=== PATIENT | male | born 1935 | race Caucasian/White ===

== ENCOUNTER → 2018-09-22 | Outpatient (CLI) | payer OTHER | END | disposition home or self-care (01) | LOC: SHCH 13:41 | PROVIDERS: ATTEND Internal Medicine Cardiovascular Disease | DX: I65.23 Occlusion and stenosis of bilateral carotid arteries (principal) | CPT/HCPCS: 93880 ==

== ENCOUNTER → 2018-09-23 | Outpatient (CLI) | payer OTHER | END | disposition home or self-care (01) | LOC: SHCH 09-22 14:29 | PROVIDERS: ATTEND Internal Medicine Cardiovascular Disease | DX: I51.7 Cardiomegaly (principal); I49.3 Ventricular premature depolarization; I49.5 Sick sinus syndrome | CPT/HCPCS: 93306 ==

== ENCOUNTER 2019-06-27 17:07 | Inpatient (IN) | payer OTHER ==
[~2019-06-27] VITALS: Ht 177.8 cm; Wt 68.9 kg
[2019-06-27] MEDS ORDERED: SODIUM CHLORIDE 0.9% 1000ML 2,000 ML IV ONE (17:28)
[2019-06-27 17:36] LABS: BASOPHILS % (AUTO) 0.6 % (0.0-5.0); LYMPHOCYTES % (AUTO) 10.4 % (21.0-51.0); MEAN CORPUSCULAR HEMOGLOBIN 29.3 pg (27.0-33.0); MEAN CORPUSCULAR HGB CONC 31.3 g/dL (32.0-36.0); MEAN CORPUSCULAR VOLUME 93.8 fL (79-99); MONOCYTES % (AUTO) 7.7 % (3.0-13.0); NEUTROPHILS % (AUTO) 77.9 % (40.0-77.0); PLATELET COUNT (AUTO) 173 K/uL (130-400); RED BLOOD CELL COUNT(AUTO) 3.41 MIL/uL (4.50-6.20); RED CELL DISTRIBUTION WIDTH 13.1 % (11.0-15.5); WHITE BLOOD COUNT (AUTO) 10.6 K/uL (4.8-10.8)
[2019-06-27 17:58] LABS: CARBON DIOXIDE 20 mmol/L (21-32); CHLORIDE 105 mmol/L (101-111); CREATININE 1.9 mg/dL (0.5-1.5); GLOMERULAR FILTR. RATE CALC 36 mL/min (>60); GLUCOSE,RANDOM 112 mg/dL (70-105); SODIUM SERUM 138 mmol/L (136-145); UREA NITROGEN, BLOOD 31 mg/dL (7-18)
[2019-06-27 18:01] LABS: INR 1.36 (0.85-1.15); PARTIAL THROMBOPLASTIN TIME 25.2 SEC (26.3-35.5); PROTHROMBIN TIME 14.5 SEC (9.6-11.6)
[2019-06-27] MEDS ORDERED: ZOSYN 3.375GM+NS 50ML 50 ML IV ONE (18:05)
[2019-06-27 18:09] LABS: ALANINE AMINOTRANSFERASE 8 U/L (12-78); ALBUMIN 2.9 g/dL (3.5-5.0); ASPARTATE AMINOTRANSFERASE 19 U/L (10-37); BILIRUBIN,TOTAL 0.2 mg/dL (0.2-1.0); CREATINE KINASE, TOTAL 108 U/L (21-232); MYOGLOBIN 278 ng/mL (10-92); TOTAL PROTEIN, SERUM 6.6 g/dL (6.0-8.3); TROPONIN I < 0.04 ng/mL (0.00-0.06)
[2019-06-27] MEDS ORDERED: SODIUM CHLORIDE 0.9% 1000ML 1,000 ML IV ONE ×2 (19:54→22:20)
[2019-06-27] MEDS: FAMOTIDINE 20MG TAB 20 MG TAB PO SCH (21:00)
[2019-06-27] MEDS ORDERED: LACTULOSE 20 GM/30 ML UDCUP PO PRN (21:15)
[2019-06-27] MEDS: CEFTRIAXONE SODIUM 1 GM IVP SCH (21:15)
[2019-06-27] MEDS ORDERED: NITROGLYCERIN 0.4 MG SL TAB SL PRN (21:15)
[2019-06-27] MEDS ORDERED: ONDANSETRON HCL 4 MG/2 ML VIAL IV PRN (21:15)
[2019-06-27] MEDS: AZITHROMYCIN 500MG+NS 250ML 250 ML IV SCH (21:15)
[2019-06-27] MEDS: SODIUM CHLORIDE 0.9% 1000ML 1,000 ML IV SCH (21:15)
[2019-06-27] MEDS ORDERED: ATORVASTATIN CALCIUM 20 MG TABLET ONE (22:20)
[2019-06-27] MEDS ORDERED: CEFTRIAXONE SODIUM 1 GM ONE (22:20)
[2019-06-27 23:48] LABS: THYROID STIMULATING HORMONE 1.29 uIU/mL (0.36-3.74)
[2019-06-28] MEDS ORDERED: AZITHROMYCIN 500MG+NS 250ML 250 ML IV ONE (00:03)
[2019-06-28 00:22] LABS: APPEARANCE,URINE Clear (CLEAR); BILIRUBIN,URINE Negative (NEGATIVE); COLOR,URINE Yellow (YELLOW); GLUCOSE, URINE (UA) Negative (NEGATIVE); KETONES,URINE Negative (NEGATIVE); LEUKOCYTE ESTERASE ,URINE Negative (NEGATIVE); NITRATE,URINE Negative (NEGATIVE); OCCULT BLOOD,URINE Small (NEGATIVE); PROTEIN,URINE Negative (NEGATIVE); UROBILINOGEN,URINE 0.2 mg/dL (0.2-1.0)
[2019-06-28 00:32] LABS: BACTERIA,URINE None Seen /HPF (None Seen); WBC,URINE 0-1 /HPF (0-1)
[2019-06-28 00:33] LABS: SQUAMOUS EPITHELIAL CELL,UR Rare /HPF (0-2)
[2019-06-28 00:40] VITALS: BP 122/58
[2019-06-28 00:44] LABS: CREATINE KINASE, TOTAL 130 U/L (21-232); MYOGLOBIN 269 ng/mL (10-92); TROPONIN I < 0.04 ng/mL (0.00-0.06)
[2019-06-28 04:00] VITALS: BP 133/57
[2019-06-28] MEDS ORDERED: SODIUM CHLORIDE 3% FOR INHALATION 4 ML/AMP VIAL.NEB IH ONE ×3 (06:16→21:23)
[2019-06-28 06:59] LABS: POTASSIUM 5.1 mmol/L (3.5-5.1)
[2019-06-28 07:00] LABS: CREATININE 1.9 mg/dL (0.5-1.5)
[2019-06-28 07:46] LABS: BASOPHILS % (AUTO) 0.3 % (0.0-5.0); EOSINOPHILS % (AUTO) 1.3 % (0.0-8.0); HEMATOCRIT 24.7 % (42-54); LYMPHOCYTES % (AUTO) 8.6 % (21.0-51.0); MEAN CORPUSCULAR HEMOGLOBIN 28.8 pg (27.0-33.0); MEAN CORPUSCULAR HGB CONC 30.8 g/dL (32.0-36.0); MEAN CORPUSCULAR VOLUME 93.6 fL (79-99); MONOCYTES % (AUTO) 8.2 % (3.0-13.0); NEUTROPHILS % (AUTO) 81.5 % (40.0-77.0); PLATELET COUNT (AUTO) 130 K/uL (130-400); RED BLOOD CELL COUNT(AUTO) 2.64 MIL/uL (4.50-6.20); RED CELL DISTRIBUTION WIDTH 13.3 % (11.0-15.5); WHITE BLOOD COUNT (AUTO) 7.1 K/uL (4.8-10.8)
[2019-06-28 07:57] LABS: ALBUMIN 2.5 g/dL (3.5-5.0); BILIRUBIN,DIRECT 0.1 mg/dL (0.0-0.3); TOTAL PROTEIN, SERUM 5.6 g/dL (6.0-8.3)
[2019-06-28 08:15] VITALS: BP 127/74
--- NOTE | 2019-06-28 08:15 | NUR ---
CARDIOLOGY CONSULT PAGED DR. GUARDADO PAGED REGARDING CONSULT.
[2019-06-28 08:27] LABS: BILIRUBIN,TOTAL 0.1 mg/dL (0.2-1.0)
[2019-06-28] MEDS ORDERED: METOPROLOL TARTRATE 25 MG TAB PO SCH (09:00)
[2019-06-28] MEDS ORDERED: ASPIRIN 325 MG TABLET PO SCH (09:00)
[2019-06-28] MEDS ORDERED: ENOXAPARIN SODIUM 40 MG/0.4 ML SYRINGE SQ SCH (09:00)
--- NOTE | 2019-06-28 09:15 | NUR ---
DR. HANEY AWARE OF CONSULT SPOKE TO MD VIA TELEPHONE, AWARE OF CONSULT
[2019-06-28 11:24] VITALS: BP 118/54
[2019-06-28] MEDS ORDERED: FAMO20TA8 PO (13:12)
[2019-06-28] MEDS ORDERED: TAMS-1 PO (13:12)
[2019-06-28] MEDS ORDERED: LOPE2TAB26 PO (13:12)
[2019-06-28] MEDS ORDERED: FINA5TAB41 PO (13:12)
[2019-06-28] MEDS ORDERED: CARB-283 OU (13:12)
[2019-06-28] MEDS ORDERED: CALC-261 PO (13:12)
[2019-06-28] MEDS ORDERED: FERR325T22 PO (13:12)
[2019-06-28] MEDS ORDERED: GEMF600T5 PO (13:12)
[2019-06-28 13:28] LABS: BASOPHILS % (AUTO) 0.3 % (0.0-5.0); EOSINOPHILS % (AUTO) 1.3 % (0.0-8.0); HEMATOCRIT 24.2 % (42-54); LYMPHOCYTES % (AUTO) 9.1 % (21.0-51.0); MEAN CORPUSCULAR HEMOGLOBIN 29.1 pg (27.0-33.0); MEAN CORPUSCULAR HGB CONC 31.4 g/dL (32.0-36.0); MEAN CORPUSCULAR VOLUME 92.7 fL (79-99); MONOCYTES % (AUTO) 9.7 % (3.0-13.0); NEUTROPHILS % (AUTO) 79.3 % (40.0-77.0); PLATELET COUNT (AUTO) 129 K/uL (130-400); RED BLOOD CELL COUNT(AUTO) 2.61 MIL/uL (4.50-6.20); RED CELL DISTRIBUTION WIDTH 13.2 % (11.0-15.5); WHITE BLOOD COUNT (AUTO) 6.7 K/uL (4.8-10.8)
[2019-06-28 16:00] VITALS: BP 113/50
--- NOTE | 2019-06-28 16:55 | NUR ---
INITIAL SW met with patient, spouse and daughter. Patient lives with spouse, Dina Green, [phone]. Other emergency contacts are: Papo Mcintosh, son, [phone] and Danyell Siegel, [phone]. No home services. DME: walker with seat, wheechair, uprught walker, cane, BPM. Patient needs assistance with ADL's and does not drive. Family assists with transportation. P[place] is Dr. Tim[place] at the [place]. [place]acy [place] [facility]. DCP as per is home. informed SW that patient is a Do Not Resuscitate at [place]. and daughter will discuss signing paperwork for patient to be a Do Not Resuscitate. Family will follow up with patient's nurse. Addendum: 06/28/19 at 1700 by TAY MORLEY SS Amended: Links added.
[2019-06-28 20:00] VITALS: BP 115/50
[2019-06-28 20:45] LABS: CREATININE,URINE RANDOM 100 mg/dL (30-135); SODIUM,URINE RANDOM 29 mmol/l (40-220)
[2019-06-28] MEDS: FAMOTIDINE 20MG TAB 20 MG TAB PO SCH (21:00)
[2019-06-28] MEDS: CEFTRIAXONE SODIUM 1 GM IVP SCH (21:42)
[2019-06-28] MEDS: ATORVASTATIN CALCIUM 20 MG TABLET PO SCH (21:43)
[2019-06-28] MEDS: AZITHROMYCIN 500MG+NS 250ML 250 ML IV SCH (21:43)
[2019-06-28] MEDS: SODIUM CHLORIDE 0.9% 1000ML 1,000 ML IV SCH (21:47)
[2019-06-29] VITALS: BP 129/53
[2019-06-29] MEDS: ACETAMINOPHEN 325 MG TAB PO PRN ×2 (02:58→20:57)
[2019-06-29 04:00] VITALS: BP 111/62
[2019-06-29 05:22] LABS: HEMATOCRIT 21.2 % (42-54); MEAN CORPUSCULAR HEMOGLOBIN 29.3 pg (27.0-33.0); MEAN CORPUSCULAR HGB CONC 31.6 g/dL (32.0-36.0); MEAN CORPUSCULAR VOLUME 92.6 fL (79-99); PLATELET COUNT (AUTO) 113 K/uL (130-400); RED BLOOD CELL COUNT(AUTO) 2.29 MIL/uL (4.50-6.20); RED CELL DISTRIBUTION WIDTH 13.2 % (11.0-15.5); WHITE BLOOD COUNT (AUTO) 6.2 K/uL (4.8-10.8)
[2019-06-29 05:54] LABS: CREATININE 1.3 mg/dL (0.5-1.5); MAGNESIUM 1.7 mg/dL (1.80-2.40); PHOSPHORUS 2.9 mg/dL (2.5-4.9); POTASSIUM 3.8 mmol/L (3.5-5.1); URIC ACID 5.7 mg/dL (2.6-7.2)
--- NOTE | 2019-06-29 06:24 | NUR ---
CRITICAL RESULTS PAGED ON-CALL, DR. ALVAREZ, TO REPORT H/H LEVELS OF 6.7/21.2. WILL AWAIT CALL BACK.
[2019-06-29] MEDS ORDERED: MAGNESIUM 2GM PREMIX 50ML 50 ML IV SCH (07:15)
[2019-06-29] MEDS ORDERED: OCTREOTIDE ACETATE 1,250 MCG in SODIUM CHLORIDE 0.9% 250 ML IV SCH (08:15)
[2019-06-29] MEDS ORDERED: PANTOPRAZOLE 40 MG/VIAL IVP SCH (08:15)
[2019-06-29] MEDS ORDERED: OCTREOTIDE ACETATE 100 MCG/ML AMP IV SCH (08:15)
[2019-06-29 08:23] VITALS: BP 99/47
--- NOTE | 2019-06-29 08:50 | NUR ---
DR. Charles HERNANDEZ SPOKE TO MD VIA TELEPHONE, ORDERS GIVEN TO/RB.
[2019-06-29] MEDS ORDERED: FOLIC ACID/VITAMIN B COMP W-C 1 CAP TAB PO SCH (09:00)
--- NOTE | 2019-06-29 09:03 | NUR ---
PAGED CARDIOLOGY CALLED RAHUL TORO FOR DR. KAUR TO INFORM THAT CARDIOLOGY CLEARANCE NEEDED PRIOR TO EGD. NO ANSWER AT THIS TIME. WILL REATTEMPT TO CALL.
--- NOTE | 2019-06-29 09:35 | NUR ---
DR. RON CONSULT CANCELED PATIENT FAMILY REQUEST SOLID STATE TESTER CONSULT TO BE CHANGED TO DR. LOPES. DR. RON PAGED AND INFORMED CONSULT HAS BEEN CANCELED.
--- NOTE | 2019-06-29 09:40 | NUR ---
DR. MOSES ESPINO MD PAGED REGARDING CONSULT
[2019-06-29] MEDS ORDERED: PANTOPRAZOLE SODIUM 40 MG TABLET.DR PO SCH (10:15)
[2019-06-29 11:58] VITALS: BP 102/59
--- NOTE | 2019-06-29 12:15 | NUR ---
DR. REES SPOKE TO MD VIA TELEPHONE REGARDING CONSULT.
[2019-06-29] MEDS: SODIUM CHLORIDE 0.9% 1000ML 1,000 ML IV SCH (13:42)
[2019-06-29] MEDS: PANTOPRAZOLE SODIUM 80 MG in SODIUM CHLORIDE 0.9% 100 ML IV SCH ×2 (13:45→23:31)
[2019-06-29 14:10] LABS: BASOPHILS % (AUTO) 0.6 % (0.0-5.0); HEMATOCRIT 26.1 % (42-54); LYMPHOCYTES % (AUTO) 6.6 % (21.0-51.0); MEAN CORPUSCULAR HEMOGLOBIN 28.9 pg (27.0-33.0); MEAN CORPUSCULAR VOLUME 93.2 fL (79-99); MONOCYTES % (AUTO) 11.7 % (3.0-13.0); NEUTROPHILS % (AUTO) 76.8 % (40.0-77.0); PLATELET COUNT (AUTO) 113 K/uL (130-400); RED CELL DISTRIBUTION WIDTH 13.2 % (11.0-15.5); WHITE BLOOD COUNT (AUTO) 7.3 K/uL (4.8-10.8)
[2019-06-29 16:07] VITALS: BP 126/67
[2019-06-29] MEDS: CEFTRIAXONE SODIUM 1 GM IVP SCH (18:28)
[2019-06-29 20:00] VITALS: BP 132/61
[2019-06-29] MEDS: FAMOTIDINE 20MG TAB 20 MG TAB PO SCH (20:50)
[2019-06-29] MEDS: ATORVASTATIN CALCIUM 20 MG TABLET PO SCH (20:51)
[2019-06-30] VITALS (13 sets, daily range): BP systolic 93–130; BP diastolic 31–70
--- NOTE | 2019-06-30 00:08 | NUR ---
ROUNDS DR. LOPES HERE AT THIS TIME. STATES HE IS AWARE OF THE CONSULT AND HE REVIEWED THE LABS. MD TO FOLLOW UP WITH PATIENT TOMORROW.
[2019-06-30 04:42] LABS: HEMATOCRIT 27.6 % (42-54); MEAN CORPUSCULAR HEMOGLOBIN 29.8 pg (27.0-33.0); MEAN CORPUSCULAR HGB CONC 32.2 g/dL (32.0-36.0); MEAN CORPUSCULAR VOLUME 92.3 fL (79-99); PLATELET COUNT (AUTO) 114 K/uL (130-400); RED BLOOD CELL COUNT(AUTO) 2.99 MIL/uL (4.50-6.20); RED CELL DISTRIBUTION WIDTH 13.4 % (11.0-15.5); WHITE BLOOD COUNT (AUTO) 6.1 K/uL (4.8-10.8)
[2019-06-30 05:52] LABS: CREATININE 1.4 mg/dL (0.5-1.5); MAGNESIUM 2.3 mg/dL (1.80-2.40); POTASSIUM 4.3 mmol/L (3.5-5.1)
[2019-06-30] MEDS: SODIUM CHLORIDE 0.9% 1000ML 1,000 ML IV SCH ×2 (11:12→15:19)
[2019-06-30] MEDS ORDERED: PROPOFOL 10 MG/ML 20ML VIAL IV ONE (11:57)
[2019-06-30] MEDS: CEFTRIAXONE SODIUM 1 GM IVP SCH (17:37)
[2019-06-30] MEDS: FAMOTIDINE 20MG TAB 20 MG TAB PO SCH (20:16)
[2019-06-30] MEDS: ATORVASTATIN CALCIUM 20 MG TABLET PO SCH (20:17)
[2019-06-30] MEDS: PANTOPRAZOLE SODIUM 80 MG in SODIUM CHLORIDE 0.9% 100 ML IV SCH (20:20)
[2019-07-01] VITALS (7 sets, daily range): BP systolic 94–140; BP diastolic 53–68
[2019-07-01 05:39] LABS: BASOPHILS % (AUTO) 0.4 % (0.0-5.0); EOSINOPHILS % (AUTO) 7.8 % (0.0-8.0); HEMATOCRIT 26.4 % (42-54); MEAN CORPUSCULAR HEMOGLOBIN 29.1 pg (27.0-33.0); MEAN CORPUSCULAR HGB CONC 31.8 g/dL (32.0-36.0); MEAN CORPUSCULAR VOLUME 91.3 fL (79-99); MONOCYTES % (AUTO) 9.4 % (3.0-13.0); PLATELET COUNT (AUTO) 129 K/uL (130-400); RED BLOOD CELL COUNT(AUTO) 2.89 MIL/uL (4.50-6.20); RED CELL DISTRIBUTION WIDTH 13.2 % (11.0-15.5); WHITE BLOOD COUNT (AUTO) 6.9 K/uL (4.8-10.8)
[2019-07-01 06:17] LABS: CREATININE 1.3 mg/dL (0.5-1.5); MAGNESIUM 1.9 mg/dL (1.80-2.40); POTASSIUM 4.3 mmol/L (3.5-5.1)
[2019-07-01] MEDS: SODIUM CHLORIDE 0.9% 1000ML 1,000 ML IV SCH ×2 (06:43→22:07)
[2019-07-01] MEDS: CEFTRIAXONE SODIUM 1 GM IVP SCH (17:56)
[2019-07-01] MEDS: ATORVASTATIN CALCIUM 20 MG TABLET PO SCH (19:39)
[2019-07-01] MEDS: PANTOPRAZOLE SODIUM 40 MG TABLET.DR PO SCH (19:39)
[2019-07-01] MEDS: ACETAMINOPHEN 325 MG TAB PO PRN (23:38)
[2019-07-02 03:00] VITALS: BP 116/48
[2019-07-02] MEDS: ACETAMINOPHEN 325 MG TAB PO PRN (05:42)
[2019-07-02 06:35] LABS: HEMATOCRIT 27.5 % (42-54)
[2019-07-02 07:48] VITALS: BP 98/57
[2019-07-02] MEDS: PANTOPRAZOLE SODIUM 40 MG TABLET.DR PO SCH ×2 (09:04→20:23)
[2019-07-02 12:14] VITALS: BP 128/64
[2019-07-02] MEDS: SODIUM CHLORIDE 0.9% 1000ML 1,000 ML IV SCH ×2 (13:31→20:24)
[2019-07-02] MEDS ORDERED: ARTIFICAL TEARS SOL 15 ML OU PRN (17:00)
[2019-07-02 17:11] VITALS: BP 151/71
[2019-07-02] MEDS: CEFTRIAXONE SODIUM 1 GM IVP SCH (17:33)
[2019-07-02] MEDS ORDERED: ARTIFICIAL TEARS 3.5 GM OINTMENT OU PRN (17:45)
[2019-07-02 20:00] VITALS: BP 128/79
[2019-07-02] MEDS: GEMFIBROZIL 600 MG TABLET PO SCH (20:23)
[2019-07-02] MEDS: LOPERAMIDE HCL 2 MG CAP PO SCH (20:23)
[2019-07-02] MEDS: ATORVASTATIN CALCIUM 20 MG TABLET PO SCH (20:23)
[2019-07-02] MEDS ORDERED: TAMSULOSIN HCL 0.4 MG CAP.ER.24H PO SCH (21:00)
[2019-07-03] VITALS: BP 125/58
[2019-07-03 03:39] VITALS: BP 129/63
[2019-07-03 06:00] LABS: BASOPHILS % (AUTO) 0.3 % (0.0-5.0); EOSINOPHILS % (AUTO) 4.6 % (0.0-8.0); HEMATOCRIT 26.3 % (42-54); LYMPHOCYTES % (AUTO) 7.3 % (21.0-51.0); MEAN CORPUSCULAR HEMOGLOBIN 29.2 pg (27.0-33.0); MEAN CORPUSCULAR HGB CONC 32.3 g/dL (32.0-36.0); MEAN CORPUSCULAR VOLUME 90.4 fL (79-99); MONOCYTES % (AUTO) 7.7 % (3.0-13.0); NEUTROPHILS % (AUTO) 79.8 % (40.0-77.0); PLATELET COUNT (AUTO) 126 K/uL (130-400); RED BLOOD CELL COUNT(AUTO) 2.91 MIL/uL (4.50-6.20); RED CELL DISTRIBUTION WIDTH 12.9 % (11.0-15.5)
[2019-07-03 06:23] LABS: CREATININE 1.2 mg/dL (0.5-1.5); POTASSIUM 3.8 mmol/L (3.5-5.1)
[2019-07-03 07:20] VITALS: BP 120/61
[2019-07-03] MEDS ORDERED: CALCIUM 600 + VITAMIN D 400 TABLET PO SCH (09:00)
[2019-07-03] MEDS ORDERED: FERROUS SULFATE 325 MG TABLET.DR PO SCH (09:00)
[2019-07-03] MEDS ORDERED: FINASTERIDE 5 MG TABLET PO SCH (09:00)
--- NOTE | 2019-07-03 10:08 | NUR ---
PA OF DR. KAUR MR JAMES PAGED STATES I WILL NOTIFY DR. FOLRES. WE ARE AT CLINIC.
[2019-07-03] MEDS: LOPERAMIDE HCL 2 MG CAP PO SCH (10:40)
[2019-07-03] MEDS: PANTOPRAZOLE SODIUM 40 MG TABLET.DR PO SCH (10:40)
[2019-07-03] MEDS: GEMFIBROZIL 600 MG TABLET PO SCH (10:41)
--- NOTE | 2019-07-03 10:45 | NUR ---
DR. FLORES AT BEDSIDE AWARE OF CONSULT STATES I CAN DO PROCEDURE OUTPATIENT. AND HE CAN BE DISCHARGED FROM MY STANDPOINT. F/U.
[2019-07-03 10:56] VITALS: BP 114/50
[2019-07-03 15:50] VITALS: BP 129/64
[2019-07-03] MEDS ORDERED: PANT40TA25 PO (15:56)
[2019-07-03] MEDS: CEFTRIAXONE SODIUM 1 GM IVP SCH (17:00)
--- NOTE | 2019-07-03 19:20 | NUR ---
PT D/C HOME USING TEACH BACK TECHNIQUE RE; NEW MEDS, HOME MEDS, S/S TO WATCH FOR AND WHEN TO CALL MD OR 911. FOLLOW UP WITH CARDIOLOGY DR. KAUR AND DR. FLORES CALL TO SET UP AN APPOINTMENT IN 1-2 WEEKS AT PHONE NUMBER [phone]. FOLLOW UP WITH DR. LOPES IN 1-2 WEEKS. CALL TO SET UP AN APPOINTMENT. FOLLOW UP WITH DR. REES IN 1-2 WEEKS CALL TO SET UP AN APPOINTMENT AT PHONE IF YOU EXPERIENCE DIZZINESS OR FAINTING CALL 911. IF YOU HAVE CHEST PAIN OR SHORTNESS OF BREATH THAT DOES NOT RESOLVE WITH REST CALL 911. Please refer to medication reconciliation sheet for full details on, medications, doses, and frequency of new medications. Discontinued and, continued home medications.> DC FOLLOW UP: <Follow-up with primary care provider in [place]., Follow-up with cardiology Dr. Flores., Follow-up with gastroenterology Dr. Moore, For the follow-up with orthopedic surgeon Dr. Rees. IV OUT INTACT, NO BLEEDING, TELE REMOVED BY STOCK UNLOADER. AAOX3, AT BEDSIDE, BOTH DENY ANY QUESTIONS OR CONCERNS.
== END 2019-07-03 18:00 | disposition home or self-care (01) | DRG 377 ==
LOC: EDH 17:07 → OBSVTOIN 21:04 → EDHIP 21:04 → 3BH 06-28 00:46
PROVIDERS: ADMIT Internal Medicine; ATTEND Internal Medicine
PROC: 30233N1 Transfusion of Nonautologous Red Blood Cells into Peripheral Vein, Percutaneous Approach (ICD-10-PCS; 2019-06-27)
PROC: 0DJ08ZZ Inspection of Upper Intestinal Tract, Via Natural or Artificial Opening Endoscopic (ICD-10-PCS; principal; 2019-06-30)
PROC: 4B02XSZ Measurement of Cardiac Pacemaker, External Approach (ICD-10-PCS; 2019-06-30)
DX: K29.71 Gastritis, unspecified, with bleeding (principal); N17.0 Acute kidney failure with tubular necrosis; E87.2 Acidosis; I47.2 Ventricular tachycardia; D62 Acute posthemorrhagic anemia; I13.0 Hypertensive heart and chronic kidney disease with heart failure and stage 1 through stage 4 chronic kidney disease, or unspecified chronic kidney disease; I42.9 Cardiomyopathy, unspecified; I47.1 Supraventricular tachycardia; I50.22 Chronic systolic (congestive) heart failure; J44.0 Chronic obstructive pulmonary disease with (acute) lower respiratory infection; I49.9 Cardiac arrhythmia, unspecified; K74.60 Unspecified cirrhosis of liver; D63.8 Anemia in other chronic diseases classified elsewhere; S82.61XA Displaced fracture of lateral malleolus of right fibula, initial encounter for closed fracture; D50.9 Iron deficiency anemia, unspecified; E11.22 Type 2 diabetes mellitus with diabetic chronic kidney disease; I25.10 Atherosclerotic heart disease of native coronary artery without angina pectoris; K21.0 Gastro-esophageal reflux disease with esophagitis; K80.20 Calculus of gallbladder without cholecystitis without obstruction; K82.8 Other specified diseases of gallbladder; N18.3 Chronic kidney disease, stage 3 (moderate); N40.0 Benign prostatic hyperplasia without lower urinary tract symptoms; W19.XXXA Unspecified fall, initial encounter; Y93.89 Activity, other specified; Y92.89 Other specified places as the place of occurrence of the external cause; Y99.8 Other external cause status; Z85.038 Personal history of other malignant neoplasm of large intestine; Z86.79 Personal history of other diseases of the circulatory system; Z87.442 Personal history of urinary calculi; Z87.891 Personal history of nicotine dependence; Z90.49 Acquired absence of other specified parts of digestive tract; Z93.2 Ileostomy status; Z93.3 Colostomy status; Z95.0 Presence of cardiac pacemaker
CPT/HCPCS: 36415; 36430; 43235; 70450; 71045; 73610; 73630; 74176; 76705; 76770; 80048; 80053; 80061; 80076; 81001; 82270; 82550; 82570; 82728; 83540; 83550; 83605; 83735; 83874; 83935; 84100; 84145; 84300; 84443; 84484; 84550; 85014; 85018; 85025; 85027; 85610; 85730; 86850; 86900; 86901; 86922; 87040; 87088; 93005; 93306; 93356; 93880; 93971; 94640; 97039; 99291; A4606; C9113; G0378; J0456; J0696; J1650; J2354; J2405; J2543; J2704; J3475; J7030; P9016

== ENCOUNTER 2019-09-06 20:18 | Inpatient (IN) | payer OTHER ==
[~2019-09-06] VITALS: Ht 177.8 cm; Wt 60.7 kg
[~2019-09-06 20:18] MED LIST: CALC-261 PO; CARB-283 OU; FERR325T22 PO; FINA5TAB41 PO; GEMF600T5 PO; LOPE2TAB26 PO; PANT40TA54 PO; TAMS-1 PO
[2019-09-06 22:32] LABS: BASOPHILS % (AUTO) 0.9 % (0.0-5.0); EOSINOPHILS % (AUTO) 6.6 % (0.0-8.0); HEMATOCRIT 33.4 % (42-54); LYMPHOCYTES % (AUTO) 12.7 % (21.0-51.0); MEAN CORPUSCULAR HEMOGLOBIN 29.3 pg (27.0-33.0); MEAN CORPUSCULAR VOLUME 91.5 fL (79-99); MONOCYTES % (AUTO) 10.6 % (3.0-13.0); NEUTROPHILS % (AUTO) 68.8 % (40.0-77.0); PLATELET COUNT (AUTO) 118 K/uL (130-400); RED BLOOD CELL COUNT(AUTO) 3.65 MIL/uL (4.50-6.20); RED CELL DISTRIBUTION WIDTH 13.8 % (11.0-15.5); WHITE BLOOD COUNT (AUTO) 5.6 K/uL (4.8-10.8)
[2019-09-06 22:41] LABS: CREATININE 1.6 mg/dL (0.5-1.5); POTASSIUM 4.9 mmol/L (3.5-5.1)
[2019-09-06 22:45] LABS: ALBUMIN 3.2 g/dL (3.5-5.0); BILIRUBIN,TOTAL 0.2 mg/dL (0.2-1.0); TOTAL PROTEIN, SERUM 6.7 g/dL (6.0-8.3)
[2019-09-06 22:46] LABS: INR 2.1 (0.85-1.15)
[2019-09-07] VITALS (16 sets, daily range): BP systolic 110–144; BP diastolic 47–82
--- NOTE | 2019-09-07 06:28 | NUR ---
PT states he did not bring his medications
[2019-09-07 06:49] LABS: BASOPHILS % (AUTO) 0.8 % (0.0-5.0); EOSINOPHILS % (AUTO) 6.8 % (0.0-8.0); HEMATOCRIT 31.9 % (42-54); MEAN CORPUSCULAR HEMOGLOBIN 28.7 pg (27.0-33.0); MEAN CORPUSCULAR HGB CONC 31.7 g/dL (32.0-36.0); MEAN CORPUSCULAR VOLUME 90.6 fL (79-99); MONOCYTES % (AUTO) 9.4 % (3.0-13.0); NEUTROPHILS % (AUTO) 70.6 % (40.0-77.0); PLATELET COUNT (AUTO) 105 K/uL (130-400); RED BLOOD CELL COUNT(AUTO) 3.52 MIL/uL (4.50-6.20); WHITE BLOOD COUNT (AUTO) 5.3 K/uL (4.8-10.8)
[2019-09-07 07:07] LABS: ALBUMIN 2.8 g/dL (3.5-5.0); BILIRUBIN,TOTAL 0.2 mg/dL (0.2-1.0); CREATININE 1.4 mg/dL (0.5-1.5); POTASSIUM 4.2 mmol/L (3.5-5.1)
[2019-09-07] MEDS ORDERED: CEFAZOLIN SODIUM 1 GM VIAL ONE (09:04)
[2019-09-07] MEDS ORDERED: MIDAZOLAM HCL 1 MG/ML 2ML VIAL ONE ×2 (09:04→10:47)
[2019-09-07] MEDS ORDERED: BUPIVACAINE/PF 0.25% 30ML VIAL IJ ONE (09:04)
[2019-09-07] MEDS ORDERED: LIDOCAINE HCL 1% MDV 50ML VIAL ONE (09:05)
[2019-09-07] MEDS ORDERED: MEPERIDINE-PF 25 MG/ML SYG ONE ×2 (09:05→10:47)
[2019-09-07] MEDS ORDERED: FAMOTIDINE/PF 20 MG/2 ML VIAL IV ONE (09:12)
[2019-09-07] MEDS: FAMOTIDINE/PF 20 MG/2 ML VIAL IV SCH (09:25)
--- NOTE | 2019-09-07 09:28 | NUR ---
SCHEDULED PEPCID GIVEN, NO SCANNER AVAILABLE. SEEN BY DRs. HESS, AND GEO. TO [facility] FOR PACEMAKER CHANGE OUT. STABLE.
[2019-09-07] MEDS ORDERED: ACETAMINOPHEN-CODEINE 300/30MG TAB PO PRN (11:30)
--- NOTE | 2019-09-07 12:50 | NUR ---
NO DC NEEDS ANTICIPATED. CM TO FOLLOW IF PT/RN CONCERNS Addendum: 09/07/19 at 1250 by ASHWIN YAÑEZ RN CM Amended: Links added.
--- NOTE | 2019-09-07 12:51 | NUR ---
CM NOTE MED KOURTNEYOD REVIEWED, PT HERE FOR BATTERY CHANGE OUT, NO LEAD CHANGES; SENT FORM CARDIOLOGY OFFICE, DCP TO HOME, DETAILED CM ASSESSMENT DEFERRED AT THIS TIME UNLESS RN OR PT CONCERNS. Addendum: 09/07/19 at 1252 by ASHWIN YAÑEZ RN CM Amended: Links added.
[2019-09-07 12:56] LABS: INR 3.35 (0.85-1.15); PARTIAL THROMBOPLASTIN TIME 34.8 SEC (26.3-35.5); PROTHROMBIN TIME 34.5 SEC (9.6-11.6)
--- NOTE | 2019-09-07 14:10 | NUR ---
GAVE REPORT TO ELANA MARTINEZ RN , NO CONCERNS VOICED.
--- NOTE | 2019-09-07 14:15 | NUR ---
Report received from Jenelle Abernathy RN Addendum: 09/07/19 at 1444 by ELANA MARTINEZ RN RN Amended: Links added.
--- NOTE | 2019-09-07 14:18 | NUR ---
REPORTED INR OF 3.35 TO DOCTOR FLORES, NEW ORDER TO ADM VITAMIN K, AND TO RE-EVALUATE HIS MEDICATIONS, PER MD HOLD PATIENT UNTIL HE GIVES OKAY TO DISCHARGE, I ALSO CALLED HOSPITALIST AND SPOKE TO DOCTOR JOHNSON ABOUT THE PATIENT HAVING PROCEDURE DONE.
[2019-09-07] MEDS ORDERED: PHYTONADIONE 10 MG/1 ML AMP SQ SCH (14:55)
--- NOTE | 2019-09-07 16:32 | NUR ---
ARNOLD CM NOTE MET W PATIENT AT BEDSIDE- PT LIVES WITH SPOUSE TERESE WHO WILL PROVIDE TRANSPORT PATIENT STATES USES A ROLLING WLAKER X 15 YEARS, BUT STILL DRIVES AND IS INDEPENDENT. HOME SAFE AND ACCESSIBLE, SHOWER MARIE IN BATHROOM, NO PROVIDERS OR HOME SERVICES, GOES TO [facility] AND [facility] IN AM Addendum: 09/07/19 at 1634 by ASHWIN YAÑEZ RN CM Amended: Links added.
--- NOTE | 2019-09-08 03:23 | NUR ---
BED ALARM PATIENT IS HIGH FALL RISK AND UPSET DUE TO BED ALARM BEING ACTIVATED. PATIENT REFUSES TO SIGN REFUSAL FORM FOR BED ALARM BECAUSE HE "DOES NOT WANT TO SIGN ANYMORE PAPERS". REFUSAL WITNESSED BY LUCI BINGHAM AND JUAN SCHMITZ.
[2019-09-08 03:35] VITALS: BP 146/72
[2019-09-08 03:46] LABS: BASOPHILS % (AUTO) 0.5 % (0.0-5.0); EOSINOPHILS % (AUTO) 3.7 % (0.0-8.0); HEMATOCRIT 34.7 % (42-54); LYMPHOCYTES % (AUTO) 11.6 % (21.0-51.0); MEAN CORPUSCULAR HEMOGLOBIN 28.9 pg (27.0-33.0); MEAN CORPUSCULAR HGB CONC 31.4 g/dL (32.0-36.0); MONOCYTES % (AUTO) 8.3 % (3.0-13.0); NEUTROPHILS % (AUTO) 75.6 % (40.0-77.0); PLATELET COUNT (AUTO) 111 K/uL (130-400); RED BLOOD CELL COUNT(AUTO) 3.77 MIL/uL (4.50-6.20); RED CELL DISTRIBUTION WIDTH 13.7 % (11.0-15.5); WHITE BLOOD COUNT (AUTO) 6.3 K/uL (4.8-10.8)
[2019-09-08 03:56] LABS: INR 1.17 (0.85-1.15); PROTHROMBIN TIME 12.6 SEC (9.6-11.6)
[2019-09-08 04:01] LABS: ALBUMIN 2.8 g/dL (3.5-5.0); BILIRUBIN,DIRECT 0.1 mg/dL (0.0-0.3); BILIRUBIN,TOTAL 0.5 mg/dL (0.2-1.0); CREATININE 1.3 mg/dL (0.5-1.5); POTASSIUM 4.2 mmol/L (3.5-5.1); TOTAL PROTEIN, SERUM 6.3 g/dL (6.0-8.3)
[2019-09-08 08:18] VITALS: BP 131/60
[2019-09-08] MEDS: FAMOTIDINE/PF 20 MG/2 ML VIAL IV SCH (09:01)
[2019-09-08 11:04] LABS: INR 1.04 (0.85-1.15); PROTHROMBIN TIME 11.2 SEC (9.6-11.6)
== END 2019-09-08 11:20 | disposition home or self-care (01) | DRG 259 ==
LOC: EDH 20:18 → OBSVTOIN 23:48 → EDHIP 23:48 → 4DH 09-07 15:00
PROVIDERS: ADMIT Internal Medicine; ATTEND Internal Medicine
PROC: 0JPT0PZ Removal of Cardiac Rhythm Related Device from Trunk Subcutaneous Tissue and Fascia, Open Approach (ICD-10-PCS; principal; 2019-09-07)
PROC: 0JH606Z Insertion of Pacemaker, Dual Chamber into Chest Subcutaneous Tissue and Fascia, Open Approach (ICD-10-PCS; 2019-09-07)
DX: T82.111A Breakdown (mechanical) of cardiac pulse generator (battery), initial encounter (principal); E44.0 Moderate protein-calorie malnutrition; Z68.1 Body mass index [BMI] 19.9 or less, adult; D68.9 Coagulation defect, unspecified; I49.5 Sick sinus syndrome; I10 Essential (primary) hypertension; D69.6 Thrombocytopenia, unspecified; N40.0 Benign prostatic hyperplasia without lower urinary tract symptoms; N28.9 Disorder of kidney and ureter, unspecified; Y71.2 Prosthetic and other implants, materials and accessory cardiovascular devices associated with adverse incidents; Y92.89 Other specified places as the place of occurrence of the external cause; Z85.038 Personal history of other malignant neoplasm of large intestine; Z87.442 Personal history of urinary calculi; Z95.0 Presence of cardiac pacemaker; Z82.3 Family history of stroke; Z80.8 Family history of malignant neoplasm of other organs or systems; Z82.49 Family history of ischemic heart disease and other diseases of the circulatory system
CPT/HCPCS: 33228; 36415; 71045; 80048; 80053; 80076; 82550; 83735; 84484; 85025; 85610; 85730; 93005; 99156; 99157; C1785; G0378; J0690; J2175; J2250; J3430; J3490

== ENCOUNTER 2021-02-28 18:44 | Emergency (ER) | payer OTHER ==
[~2021-02-28] VITALS: Ht 157.5 cm; Wt 59.9 kg
[~2021-02-28 18:44] MED LIST changes: -GEMF600T5 PO; +GEMF600T89 PO
[2021-02-28] MEDS ORDERED: ACETAMINOPHEN 325 MG TAB ONE (20:06)
[2021-02-28] MEDS ORDERED: ACETAMINOPHEN 325 MG TAB PO ONE (20:30)
[2021-02-28] MEDS ORDERED: OCTYL 2-CYANOACRYLATE 1 EACH TP ONE (21:06)
[2021-02-28 21:16] VITALS: BP 119/48
[2021-02-28] MEDS ORDERED: OCTYL 2-CYANOACRYLATE 1 EACH TP SCH (21:30)
== END 2021-02-28 22:01 | disposition home or self-care (01) ==
LOC: EDH 18:44
DX: S42.291A Other displaced fracture of upper end of right humerus, initial encounter for closed fracture (principal); S51.011A Laceration without foreign body of right elbow, initial encounter; S61.412A Laceration without foreign body of left hand, initial encounter; E78.00 Pure hypercholesterolemia, unspecified; Z95.0 Presence of cardiac pacemaker; W18.39XA Other fall on same level, initial encounter; Y93.89 Activity, other specified; Y92.89 Other specified places as the place of occurrence of the external cause; Y99.8 Other external cause status
CPT/HCPCS: 12001; 73030

== ENCOUNTER → 2021-03-11 | Outpatient (CLI) | payer OTHER | END | disposition home or self-care (01) | LOC: SHCH 09:05 | PROVIDERS: ATTEND Internal Medicine Cardiovascular Disease | DX: I08.1 Rheumatic disorders of both mitral and tricuspid valves (principal); I27.20 Pulmonary hypertension, unspecified; Z95.0 Presence of cardiac pacemaker | CPT/HCPCS: 93306; 93356 ==

== ENCOUNTER → 2021-03-31 | Outpatient (CLI) | payer OTHER | END | disposition home or self-care (01) | LOC: SHCH 09:38 | PROVIDERS: ATTEND Internal Medicine Cardiovascular Disease | DX: I65.23 Occlusion and stenosis of bilateral carotid arteries (principal); R09.89 Other specified symptoms and signs involving the circulatory and respiratory systems | CPT/HCPCS: 93880 ==